=== PATIENT | male | born 2005 | race Hispanic/Latino ===

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

== ENCOUNTER 2025-01-06 10:32 | Outpatient (CLI) | payer BC, OTHER | END 2025-01-06 10:33 | disposition home or self-care (01) | LOC: BURRAD 10:32 | PROVIDERS: ATTEND Physician Assistant | DX: M25.562 Pain in left knee (principal) ==